=== PATIENT | male | born 2000 | race Caucasian/White ===

== ENCOUNTER 2022-09-11 21:42 | Emergency (ER) | payer BC, OTHER ==
[2022-09-11] MEDS ORDERED: Ibuprofen 200 MG TAB ONE (22:16)
== END 2022-09-11 22:24 | disposition home or self-care (01) ==
LOC: CSHERS 21:42
DX: S76.911A Strain of unspecified muscles, fascia and tendons at thigh level, right thigh, initial encounter (principal); X58.XXXA Exposure to other specified factors, initial encounter
CPT/HCPCS: 99283